=== PATIENT | female | born 1955 ===

== ENCOUNTER 2021-07-25 14:32 | Observation (INO) | payer OTHER, MEDICAID ==
[~2021-07-25] VITALS: Ht 160 cm; Wt 68.0 kg
[2021-07-25 15:04] LABS: Basophils # (auto) 0.1 10 ^3/uL (0-0.2); Basophils % (auto) 0.5 % (0.0-2.0); Eosinophils # (auto) 0.1 10 ^3/uL (0-0.8); Eosinophils % (auto) 0.8 % (0.0-7.0); Hematocrit 34.3 % (36.0-46.0); Hemoglobin 11.2 g/dL (12.2-16.2); Lymphocytes # (auto) 3.3 10 ^3/uL (0.4-5.4); Lymphocytes % (auto) 25.3 % (10.0-50.0); Mean Corpuscular Hemoglobin 27.7 pg (28.0-32.0); Mean Corpuscular Hgb Conc. 32.7 g/dL (32.0-36.0); Mean Corpuscular Volume 84.7 fL (80.0-100.0); Monocytes # (auto) 0.8 10 ^3/uL (0-1.3); Monocytes % (auto) 5.9 % (0.0-12.0); Neutrophils # (auto) 8.8 10 ^3/uL (1.6-8.6); Neutrophils % (auto) 67.5 % (37.0-80.0); Nucleated Red Blood Cells % 0.1 %; Red Blood Cells 4.05 10^6/uL (4.0-5.20); Red Cell Distribution Width 13.4 % (11.8-14.3)
[2021-07-25 15:23] LABS: Alanine Aminotransferase 13 U/L (13-56); Albumin 3.1 g/dL (3.4-5.0); Anion Gap 9 (5-15); Aspartate Aminotransferase 5 U/L (15-37); BUN/Creatinine Ratio 23.8; Blood Urea Nitrogen 25 mg/dL (7-18); Calcium 9.5 mg/dL (8.5-10.1); Carbon Dioxide 22 mmol/L (21-32); Chloride 109 mmol/L (98-107); GFR African American 67 mL/min; GFR Non-African American 56 mL/min; Glucose 239 mg/dL (74-106); Potassium 3.2 mmol/L (3.5-5.1); Sodium 140 mmol/L (136-145)
[2021-07-25 15:27] LABS: Alkaline Phosphatase 97 U/L (45-117); Bilirubin, Total 0.2 mg/dL (0.2-1.0); Total Protein 7.9 g/dL (6.4-8.2)
[2021-07-25] MEDS ORDERED: POTASSIUM CHL 20 Meq TABLET PO ONE (15:45)
[2021-07-25] MEDS ORDERED: metroNIDAZOLE 500MG/100ML 100 ML IV ONE (22:45)
[2021-07-25] MEDS ORDERED: cefTRIAXone 1GM/50ML D5W 50 ML IV ONE (22:45)
[2021-07-26] MEDS ORDERED: ONDANSETRON HCL 4 MG/2 ML VIAL IV PRN (00:15)
[2021-07-26] MEDS ORDERED: ACETAMINOPHEN 325 MG TAB PO PRN (00:15)
[2021-07-26] MEDS ORDERED: HYDROcodone-ACET 5/325MG TAB PO PRN (00:15)
[2021-07-26] MEDS ORDERED: MORPHINE SULFATE INJECTION 2 MG/ML SYRG IV PRN (00:15)
[2021-07-26] MEDS: SODIUM CHLORIDE 0.9% 1,000 ML IV SCH ×2 (02:24→10:15)
[2021-07-26] MEDS: metroNIDAZOLE 500MG/100ML 100 ML IV SCH ×2 (05:32→13:00)
[2021-07-26] MEDS ORDERED: levoFLOXacin 500MG 100 ML IV ONE (10:00)
[2021-07-26 11:21] LABS: Basophils # (auto) 0 10 ^3/uL (0-0.2); Basophils % (auto) 0.3 % (0.0-2.0); Eosinophils # (auto) 0.3 10 ^3/uL (0-0.8); Eosinophils % (auto) 1.9 % (0.0-7.0); Hematocrit 35.1 % (36.0-46.0); Hemoglobin 11.3 g/dL (12.2-16.2); Lymphocytes # (auto) 2.9 10 ^3/uL (0.4-5.4); Lymphocytes % (auto) 20.7 % (10.0-50.0); Mean Corpuscular Hemoglobin 27.6 pg (28.0-32.0); Mean Corpuscular Hgb Conc. 32.3 g/dL (32.0-36.0); Mean Corpuscular Volume 85.7 fL (80.0-100.0); Monocytes # (auto) 0.6 10 ^3/uL (0-1.3); Monocytes % (auto) 4.5 % (0.0-12.0); Neutrophils # (auto) 10.3 10 ^3/uL (1.6-8.6); Neutrophils % (auto) 72.6 % (37.0-80.0); Red Cell Distribution Width 13.6 % (11.8-14.3); White Blood Cell 14.1 10^3/uL (4.4-10.8)
[2021-07-26 11:30] VITALS: BP 158/69
[2021-07-26 11:35] LABS: BUN/Creatinine Ratio 24.7; Calcium 8.8 mg/dL (8.5-10.1); Potassium 3.7 mmol/L (3.5-5.1)
[2021-07-26] MEDS ORDERED: AMOX500T86 PO (13:19)
== END 2021-07-26 12:23 | disposition home or self-care (01) ==
LOC: EDBD 14:32 → ER 14:32 → OVERFLOW 14:49 → TELE 07-26 00:09 → UNDOADMIN 07-26 00:09 → OVERFLOW 07-26 00:29 → UNDOADMOB 07-26 00:29 → UNDODISOB 07-26 12:23 → TELE 07-26 14:00 → UNDODISIN 07-26 14:00 → TELE 07-26 14:18
PROVIDERS: ADMIT Nurse Practitioner Family; ATTEND Nurse Practitioner Family
DX: A09 Infectious gastroenteritis and colitis, unspecified (principal); Z20.822 Contact with and (suspected) exposure to COVID-19; N17.9 Acute kidney failure, unspecified; I10 Essential (primary) hypertension; E11.9 Type 2 diabetes mellitus without complications; K57.30 Diverticulosis of large intestine without perforation or abscess without bleeding; K59.39 Other megacolon; R55 Syncope and collapse; E87.6 Hypokalemia; E87.5 Hyperkalemia; R07.89 Other chest pain; R53.1 Weakness; Z79.4 Long term (current) use of insulin; Z79.899 Other long term (current) drug therapy; Z90.710 Acquired absence of both cervix and uterus
CPT/HCPCS: 36415; 70450; 71045; 74176; 80048; 85025; 87426; 96365; 96366; 96367; 96368; 99291; G0378; J0696; J1956; J3490; J7030